=== PATIENT | male | born 1940 | race Caucasian/White ===

== ENCOUNTER 2023-04-09 10:16 | Outpatient (CLI) | payer OTHER, MEDICARE | END 2023-04-09 23:59 | disposition EMS.NT | LOC: EMS 10:16 | DX: Z04.1 Encounter for examination and observation following transport accident (principal) ==

== ENCOUNTER 2023-04-10 11:28 | Emergency (ER) | payer MEDICARE, OTHER ==
[2023-04-10 11:41] VITALS: BP 157/56
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
== END 2023-04-10 14:38 | disposition home or self-care (01) ==
LOC: ED 11:28
DX: S16.1XXA Strain of muscle, fascia and tendon at neck level, initial encounter (principal); S76.012A Strain of muscle, fascia and tendon of left hip, initial encounter; S46.912A Strain of unspecified muscle, fascia and tendon at shoulder and upper arm level, left arm, initial encounter; V43.54XA Car driver injured in collision with van in traffic accident, initial encounter
CPT/HCPCS: 99283; 99284

== ENCOUNTER 2023-05-25 12:46 | Inpatient (IN) | payer MEDICARE, OTHER ==
[2023-05-25] MEDS ORDERED: LORazepam 2 MG/ML VIAL IVP STA ×2 (12:50→15:03)
[2023-05-25] MEDS ORDERED: levETIRAcetam INJ 2,000 MG in SODIUM CHLORIDE 0.9% 100ML 100 ML IV STA (12:54)
[2023-05-25] MEDS ORDERED: LORazepam 2 MG/ML VIAL ONE (12:56)
[2023-05-25 13:07] LABS: BASOPHILS % (AUTO) 0.5 %; HCT - HEMATOCRIT 41.9 % (42.0-52.0); LYMPHOCYTES # (AUTO) 1.1 10^3/uL (1.5-3.5); LYMPHOCYTES % (AUTO) 13.6 %; MEAN CORPUSCULAR HEMOGLOBIN 27.9 pg (27.0-31.0); MEAN CORPUSCULAR VOLUME 89.9 fL (80.0-94.0); MEAN PLATELET VOLUME 10.9 fL (7.4-11.4); MONOCYTES # (AUTO) 0.6 10^3/uL (0.0-1.0); MONOCYTES % (AUTO) 8.1 %; NEUTROPHILS % (AUTO) 77.3 %; PLT - PLATELET COUNT 112 10^3/uL (130-450); RED BLOOD COUNT 4.66 10^6/uL (4.70-6.10); RED CELL DISTRIBUTION WIDTH 16.1 % (12.0-15.0); WHITE BLOOD COUNT 7.7 x10^3/uL (4.8-10.8)
[2023-05-25 13:14] LABS: INR 1.2 (0.8-1.2); PT - PROTHROMBIN TIME 13.6 secs (9.9-12.6)
--- NOTE | 2023-05-25 13:16 | ED Physician Documentation ---
PD HPI SEIZURE - Stated complaint Stated Complaint: SZ - Chief complaint Chief Complaint: Neuro - History obtained from History obtained from: EMS - Additional information Additional information: Patient is an 82-year-old male with unknown past medical history presenting for evaluation of multiple seizures. Per EMS report patient was feeling unwell yesterday and went to [facility] for fever and diarrhea and discharged with a prescription for Zofran. Today he has had 3 seizures witnessed by EMS. Family reports that he fell in the bathroom. Patient is not able to provide any meaningful history. EMS did not administer any medications. He did not return to his baseline in between the seizure episodes. EMS describes them each lasting 1 to 2 minutes and about 10 minutes apart. Review of Systems Unable to obtain: AMS PD PAST MEDICAL HISTORY - Present Medications Home Medications: Ambulatory Orders Medication Instructions Recorded Confirmed No Known Home Medications 04/10/23 04/10/23 - Allergies Allergies/Adverse Reactions: Allergies Allergy/AdvReac Type Severity Reaction Status Date / Time No Known Drug Allergies Allergy Verified 05/25/23 12:58 PD ED PE NORMAL - General General: Other (Unresponsive; cachectic). No: Alert and oriented X 3 - HEENT HEENT: Atraumatic, PERRL, Other (Dry oral mucosa) - Cardiac Cardiac: Other (Tachycardic, regular rhythm) - Respiratory Respiratory: No respiratory distress, Clear bilaterally - Abdomen Abdomen: Normal bowel sounds, Soft, Non tender, Non distended - Derm Derm: Warm and dry - Extremities Extremities: No edema - Neuro Neuro: No: Alert and oriented X 3, Normal speech Eye Opening: None Motor: Withdraws to Pain Verbal: None GCS Score: 6 Results - Vitals Vitals: Vital Signs - 24 hr 05/25/23 05/25/23 05/25/23 12:51 13:01 14:08 Temperature 36.6 C Heart Rate 118 H 106 H 88 Respiratory 24 27 H 24 Rate Blood Pressure 135/59 H 145/102 H 133/60 H O2 Saturation 98 99 98 If not protocol 2 : Oxygen Flow, liters/minute 05/25/23 05/25/23 05/25/23 14:56 15:30 16:20 Temperature Heart Rate 81 79 79 Respiratory 18 21 22 Rate Blood Pressure 119/52 L 114/56 L 106/47 L O2 Saturation 99 99 100 If not protocol 2 2 : Oxygen Flow, liters/minute 05/25/23 16:34 Temperature Heart Rate 80 Respiratory 22 Rate Blood Pressure 105/50 L O2 Saturation 100 If not protocol 2 : Oxygen Flow, liters/minute Oxygen O2 Source Nasal cannula - EKG (time done) 1253 EKG releavant findings:: EKG personally interpreted by author of this note. Relevant findings are: Rate 95, normal sinus rhythm, right bundle branch block, no STEMI, no ST depressions, no prior for comparison Rate: Rate (enter#) (95) Rhythm: NSR Ischemia: No: ST elevation c/w ischemia Compare to prior EKG: Old EKG unavailable - Labs Labs: Microbiology 05/25/23 15:35 CSF Culture - Preliminary Cerebral Spinal Fluid Laboratory Tests 05/25/23 05/25/23 05/25/23 13:00 13:00 13:00 WBC 7.7 RBC 4.66 L Hgb 13.0 L Hct 41.9 L MCV 89.9 MCH 27.9 MCHC 31.0 L RDW 16.1 H Plt Count 112 L MPV 10.9 Neut # (Auto) 6.0 Lymph # (Auto) 1.[address] [place] # (Auto) 0.6 Eos # (Auto) 0.0 Baso # (Auto) 0.0 Absolute Nucleated RBC 0.00 Nucleated RBC % 0.0 PT 13.6 H INR 1.2 Sodium 140 Potassium 4.4 Chloride 104 Carbon Dioxide 25 Anion Gap 11.0 BUN 15 Creatinine 1.5 H Estimated GFR (MDRD) 45 L Glucose 166 H POC Whole Bld Glucose Lactic Acid Calcium 9.7 Total Bilirubin 1.2 H AST 10 ALT 7 L Alkaline Phosphatase 94 Total Protein 8.1 Albumin 4.2 Globulin 3.9 Albumin/Globulin Ratio 1.1 Lipase 7 L Urine Color Urine Clarity Urine pH Ur Specific Fleming Urine Protein Urine Glucose (UA) Urine Ketones Urine Occult Blood Urine Nitrite Urine Bilirubin Urine Urobilinogen Ur Leukocyte Esterase Urine RBC Urine WBC Ur Squamous Epith Cells Urine Bacteria Urine Casts Urine Sperm Ur Microscopic Review Urine Culture Comments CSF Color CSF Clarity Xanthrochromic CSF WBC CSF RBC CSF Cell Count Tube # CSF Glucose CSF Total Protein Urine Opiates Screen Ur Oxycodone Screen Urine Methadone Screen Ur Propoxyphene Screen Ur Barbiturates Screen Ur Tricyclics Screen Ur Phencyclidine Scrn Ur Amphetamine Screen U Methamphetamines Scrn U Benzodiazepines Scrn Urine Cocaine Screen U Cannabinoids Screen Ethyl Alcohol < 10.0 09/20/23 09/20/23 09/20/23 13:00 13:06 13:50 WBC RBC Hgb Hct MCV MCH MCHC RDW Plt Count MPV Neut # (Auto) Lymph # (Auto) [place]. Johns # (Auto) Eos # (Auto) Baso # (Auto) Absolute Nucleated RBC Nucleated RBC % PT INR Sodium Potassium Chloride Carbon Dioxide Anion Gap BUN Creatinine Estimated GFR (MDRD) Glucose POC Whole Bld Glucose 158 H Lactic Acid 4.9 H* Calcium Total Bilirubin AST ALT Alkaline Phosphatase Total Protein Albumin Globulin Albumin/Globulin Ratio Lipase Urine Color DARK YELLOW Urine Clarity SL. CLOUDY Urine pH 5.0 Ur Specific Fleming >=1.030 H Urine Protein 100 H Urine Glucose (UA) NEGATIVE Urine Ketones TRACE Urine Occult Blood MODERATE H Urine Nitrite POSITIVE H Urine Bilirubin NEGATIVE Urine Urobilinogen 0.2 (NORMAL) Ur Leukocyte Esterase TRACE H Urine RBC 0-5 Urine WBC 6-10 H Ur Squamous Epith Cells RARE Squamous Urine Bacteria Moderate H Urine Casts 0-2 Granular Casts Urine Sperm PRESENT Ur Microscopic Review INDICATED Urine Culture Comments INDICATED CSF Color CSF Clarity Xanthrochromic CSF WBC CSF RBC CSF Cell Count Tube # CSF Glucose CSF Total Protein Urine Opiates Screen NEGATIVE Ur Oxycodone Screen NEGATIVE Urine Methadone Screen NEGATIVE Ur Propoxyphene Screen NEGATIVE Ur Barbiturates Screen NEGATIVE Ur Tricyclics Screen NEGATIVE Ur Phencyclidine Scrn NEGATIVE Ur Amphetamine Screen NEGATIVE U Methamphetamines Scrn NEGATIVE U Benzodiazepines Scrn POSITIVE H Urine Cocaine Screen NEGATIVE U Cannabinoids Screen NEGATIVE Ethyl Alcohol 05/25/23 15:35 WBC RBC Hgb Hct MCV MCH MCHC RDW Plt Count MPV Neut # (Auto) Lymph # (Auto) [place]. [place] # (Auto) Eos # (Auto) Baso # (Auto) Absolute Nucleated RBC Nucleated RBC % PT INR Sodium Potassium Chloride Carbon Dioxide Anion Gap BUN Creatinine Estimated GFR (MDRD) Glucose POC Whole Bld Glucose Lactic Acid Calcium Total Bilirubin AST ALT Alkaline Phosphatase Total Protein Albumin Globulin Albumin/Globulin Ratio Lipase Urine Color Urine Clarity Urine pH Ur Specific Fleming Urine Protein Urine Glucose (UA) Urine Ketones Urine Occult Blood Urine Nitrite Urine Bilirubin Urine Urobilinogen Ur Leukocyte Esterase Urine RBC Urine WBC Ur Squamous Epith Cells Urine Bacteria Urine Casts Urine Sperm Ur Microscopic Review Urine Culture Comments CSF Color COLORLESS CSF Clarity CLEAR Xanthrochromic ABSENT CSF WBC 1 CSF RBC 0 CSF Cell Count Tube # CSF TUBE# 3 CSF Glucose 85 H CSF Total Protein 62 H Urine Opiates Screen Ur Oxycodone Screen Urine Methadone Screen Ur Propoxyphene Screen Ur Barbiturates Screen Ur Tricyclics Screen Ur Phencyclidine Scrn Ur Amphetamine Screen U Methamphetamines Scrn U Benzodiazepines Scrn Urine Cocaine Screen U Cannabinoids Screen Ethyl Alcohol PD Medical Decision Making - ED course Complexity details: d/w patient, d/w family (Reviewed work-up with son Over the phone and grandchildren at the bedside. I also reviewed incidental findings of Spiculated nodule in right lung and a sclerotic lesion in C7 that could both be concerning for cancer.) ED course: Patient is an 82-year-old male presenting for evaluation after an unwitnessed fall with 3 seizures. Patient is minimally responsive and has not returned to his baseline between the seizures thus concerning for status epilepticus. He was actively seizing upon arrival and I did order for 2 mg of IV Ativan as well as a loading dose of Keppra 2 g. Broad work-up was initiated including labs with blood cultures, lactic acid, CT head, cervical spine, x-ray, urine analysis, EtOH and drug screen. Labs are significant for an elevated lactic which could be expected in the setting of seizure. The patient was reportedly ill and seen at [facility] yesterday with fever and diarrhea. He is not febrile here. CT head and C-spine were obtained and reviewed. There were incidental findings noted on the C-spine including a pulmonary nodule and a sclerotic lesion which I reviewed with patient's grandchildren who are at the bedside and also communicated with admitting hospitalist. I performed a lumbar puncture with clear appearing CSF after consenting with family. I have started the patient on broad antibiotics including Rocephin, vancomycin and ampicillin given his age.Initially there was no bed available here in our ICU but I did discuss the case with the admitting hospitalist who did feel that he could be managed here. She did ask if I can order an MRI with and without contrast to evaluate for brain mass or metastatic disease.Eventually an ICU bed did open up and again I discussed with Dr. Porter. She is aware that Per the family patient would not want intubation or resuscitation.Patient's Mental status has not significantly changed at all since being here or with family present and placing his hearing aids.I have not seen any further seizure episodes since the first 1 when he arrived here. 1258 - D/W Son Jeffrey Dior Son is a long-national van truck driver and is currently located in [place] and is trying to come home. He was told that his father went to the ER last night for reported fevers diarrhea and cold sweats with nausea. His father does not have a history of seizures and only takes baby aspirin. It does not regularly see physicians or go for checkups. He does not use any recreational drugs or alcohol. Patient does not have any advanced directives and so we discussed resuscitative measures such as CPR and intubation. Son feels that his father would not want heroic measures like CPR or chest compressions and would not want intubation or to be put on a life support machine. He otherwise would like us to proceed with treatment of seizures and diagnosis of underlying condition. He is attempting to fly home as he understands that his father is in critical condition. 3. A sclerotic lesion in C7, probably a bone island. If the patient has a personal history of cancer, metastatic disease is a differential diagnosis. 4. A 1.3 cm spiculated nodule in the right upper lobe. Recommend nonemergent chest CT for follow-up. Departure - Departure Disposition: [facility] DC/Xfer Clinical Impression: New onset seizure, Pulmonary nodule Altered mental state Qualifiers: Altered mental status type: unspecified Qualified Code(s): R41.82 - Altered mental status, unspecified UTI (urinary tract infection) Qualifiers: Urinary tract infection type: acute cystitis Condition: Critical Discharge Date/Time: 05/25/23 18:55
--- NOTE | 2023-05-25 13:21 | XRAY Report ---
PROCEDURE: Chest 1 View X-Ray INDICATIONS: seizures TECHNIQUE: One view of the chest was acquired. COMPARISON: None. FINDINGS: Surgical changes and devices: None. Lungs and pleura: Mild bilateral interstitial prominence. No focal consolidation. No pleural effusio ns or pneumothorax. Mediastinum: Mediastinal contours appear normal. Heart size is normal. Bones and chest wall: No suspicious bony lesions. Overlying soft tissues appear unremarkable. IMPRESSION: No acute cardiopulmonary process. Reviewed by: Desiree Ponce MD on 05/25/2023 1:19 PM PDT Approved by: Desiree Ponce MD on 05/25/2023 1:19 PM PDT Station ID: [id number]
[2023-05-25 13:22] LABS: ALBUMIN 4.2 g/dL (3.2-5.5); ALBUMIN/GLOBULIN RATIO 1.1 (1.0-2.2); ALKALINE PHOSPHATASE 94 IU/L (42-121); ALT ALANINE AMINOTRANSFERASE 7 IU/L (10-60); AST ASPARTATE AMINOTRANSFERASE 10 IU/L (10-42); BILIRUBIN,TOTAL 1.2 mg/dL (0.2-1.0); BUN - BLOOD UREA NITROGEN 15 mg/dL (6-20); CALCIUM 9.7 mg/dL (8.5-10.3); CARBON DIOXIDE - CO2 25 mmol/L (21-32); CHLORIDE 104 mmol/L (101-111); CREATININE 1.5 mg/dL (0.6-1.3); ETOH - ETHANOL < 10.0 mg/dL; GFR - MDRD 45 (>89); GLUCOSE 166 mg/dL (74-104); POTASSIUM 4.4 mmol/L (3.5-4.5); SODIUM 140 mmol/L (135-145); TOTAL PROTEIN 8.1 g/dL (6.4-8.9)
[2023-05-25 13:23] LABS: LIPASE 7 U/L (11-82)
[2023-05-25] MEDS ORDERED: SODIUM CHLORIDE 0.9% 1,000 ML IV STA ×3 (13:28→16:45)
--- NOTE | 2023-05-25 14:14 | CT Report ---
PROCEDURE: HEAD WO INDICATIONS: seizure x 3; AMS TECHNIQUE: Noncontrast 4.5 mm thick angled axial sections acquired from the foramen magnum to the vertex. For r adiation dose reduction, the following was used: automated exposure control, adjustment of mA and/or kV according to patient size. COMPARISON: None. FINDINGS: Image quality: Excellent. CSF spaces: Basal cisterns are patent. No extra-axial fluid collections. Ventricles are normal in size and shape. Brain: No midline shift. No intracranial masses or hemorrhage. Moderate cerebral volume loss. Annita ventricular matter chronic small vessels ischemic changes. Coughlin-white matter interface is normal. Skull and face: Calvarium and visualized facial bones are intact, without suspicious lesions. Sinuses: Visualized sinuses and mastoids are clear. IMPRESSION: No acute intracranial pathology. A cause for seizure is not identified on CT. Consider MRI with and w ithout contrast for further evaluation. Reviewed by: Desiree Ponce MD on 05/25/2023 2:12 PM PDT Approved by: Desiree Ponce MD on 05/25/2023 2:12 PM PDT Station ID: [id number]
[2023-05-25 14:18] LABS: MUDS CUTOFF CONCENTRATIONS CUTOFF CONC BELOW:
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
[2023-05-25 14:22] LABS: BILIRUBIN,URINE NEGATIVE (NEGATIVE); CLARITY,URINE SL. CLOUDY (CLEAR); GLUCOSE, URINE (UA) NEGATIVE (NEGATIVE); KETONES,URINE (UA) TRACE mg/dL (NEGATIVE); LEUKOCYTE ESTERASE, URINE TRACE (NEGATIVE); NITRITE,URINE POSITIVE (NEGATIVE); OCCULT BLOOD,URINE MODERATE (NEGATIVE); PROTEIN,URINE 100 mg/dL (NEGATIVE); UROBILINOGEN,URINE 0.2 (NORMAL) E.U./dL (NORMAL)
[2023-05-25 14:34] LABS: BACTERIA,URINE Moderate /HPF (None Seen); CASTS, URINE 0-2 Granular Casts /LPF; RBC,URINE 0-5 /HPF (0-5); SPERM,URINE PRESENT; SQUAMOUS EPITHELIAL CELL,UR RARE Squamous (<= Few)
[2023-05-25 14:35] LABS: AMPHETAMINE SCREEN,URINE NEGATIVE (NEGATIVE); BARBITURATE SCREEN,UR NEGATIVE (NEGATIVE); BENZODIAZEPINES SCREEN, URINE POSITIVE (NEGATIVE); COCAINE SCREEN URINE NEGATIVE (NEGATIVE); METHADONE SCREEN, URINE NEGATIVE (NEGATIVE); METHAMPHETAMINES SCREEN, URINE NEGATIVE (NEGATIVE); OPIATE SCREEN, URINE NEGATIVE (NEGATIVE); OXYCODONE SCREEN, URINE NEGATIVE (NEGATIVE); PROPOXYPHENE SCREEN, URINE NEGATIVE (NEGATIVE); THC CANNABINOID SCREEN, URINE NEGATIVE (NEGATIVE); TRICYCLIC ANTIDEPRESSANT,URINE NEGATIVE (NEGATIVE)
[2023-05-25] MEDS ORDERED: lidocaine 1% 20 ML MDV SUBQ ONE (14:47)
--- OUTSIDE RECORDS SUMMARY | 2023-05-25 14:49 | EXTERNAL MEDICAL SUMMARY RPT | Continuity of Care Document ---
Author Name Unknown Address [address] [place] [address] Phone Organization [facility] Address [address] [place] [address] Phone Care Team Providers Care Welder And Fitter Name Role Phone SundeepAde Unavailable Unavailable Allergies and Intolerances date description facility reaction severity (no date) No Known Drug Allergies [facility] (no shon ction) (no severity) Problems date description facility 2023-05-25 00:[address] [facility] 2023-05-25 00:00 Fever [facility] Procedures date description facility 2023-05-25 00:00 Computed tomography of head or brain without contrast [facility] 2023-05-25 00:00 X-ray of chest, single view [facility] Results/Labs test date facility value unit notes Social History date description facility 2023-05-25 00:00 Smokes tobacco daily (finding) [facility] Vital Signs date measurement value units 2023-05-24 00:00 BMI 22.8 kg/m2 2023-05-24 00:00 height_metric 172.72 cm 2023-05-24 00:00 height_standard 68 in 2023-05-24 00:00 temperature_metric 36.94 C 2023-05-24 00:00 temperature_standard 98.5 F 2023-05-24 00:00 weight_metric 68.03 kg 2023-05-24 00:00 weight_standard 149.98 lb 2023-05-25 00:00 BP_diastolic 54 mmHg 2023-05-25 00:00 BP_systolic 123 mmHg 2023-05-25 00:00 heart_rate 75 /min 2023-05-25 00:00 o2_saturation 93 % 2023-05-25 00:00 respiration_rate 16 /min
[2023-05-25] MEDS ORDERED: cefTRIAXone 2 GM in SODIUM CHLORIDE 0.9% MINIBAG 100 ML IV STA (15:41)
[2023-05-25 16:03] LABS: CLARITY,CSF CLEAR (CLEAR); COLOR,CSF COLORLESS (COLORLESS); CSF TUBE # CSF TUBE# 3; CSF XANTHOCHROMIA ABSENT (ABSENT); RED BLOOD CELL,CSF 0 /mm^3 (0-1); WHITE BLOOD CELL,CSF 1 /mm^3 (0-5)
[2023-05-25 16:14] LABS: CSF - GLUCOSE 85 mg/dL (45-70); TOTAL PROTEIN,CSF 62 mg/dL (15-60)
[2023-05-25] MEDS ORDERED: VANCOMYCIN INJ 1 GM in SODIUM CHLORIDE 0.9% 250 ML IV SCH (17:00)
[2023-05-25] MEDS ORDERED: ONDANSETRON ODT 4 MG TABLET TL PRN (17:04)
[2023-05-25] MEDS ORDERED: oxyCODONE 5 MG TABLET PO PRN (17:04)
[2023-05-25] MEDS ORDERED: ACETAMINOPHEN 325 MG TABLET PO PRN (17:04)
[2023-05-25] MEDS ORDERED: ONDANSETRON 4 MG/2 ML VIAL IVP PRN (17:04)
[2023-05-25] MEDS ORDERED: SODIUM CHLORIDE FLUSH 0.9% 10 ML SYRINGE IVP PRN (17:04)
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
[2023-05-25] MEDS ORDERED: AMPICILLIN 2 GM in SODIUM CHLORIDE 0.9% MINIBAG 100 ML IV SCH (18:00)
--- NOTE | 2023-05-25 19:26 | MRI Report ---
PROCEDURE: BRAIN W/WO INDICATIONS: new onset seizures/AMS CONTRAST: gadavist 5.9ml TECHNIQUE: Noncontrast axial T1 spin echo, axial T2 fast spin echo, sagittal and axial FLAIR, coronal T2 fast sp in echo, axial gradient echo, axial diffusion and ADC through the brain. After the administration of contrast, axial and coronal T1 spin echo with fat saturation through the brain. COMPARISON: Correlation is made with head CT, 05/25/2023. FINDINGS: Image quality: Excellent. Motion artifact is noted. CSF spaces: Basal cisterns are patent. No extra-axial fluid collections. Ventricles are normal in size and shape. Brain: There is a mild degree of abnormal diffusion weighted signal seen involving the anterior supe rior aspect of the right frontal lobe, as on series 12 images 43 through 46. There is associated dark signal seen on the ADC maps at these sites. No abnormal enhancement can be seen within this region. No midline shift. No intracranial bleeds or masses. No abnormal intracranial enhancement. There is cerebral volume loss for age. There is periventricular white matter chronic small vessel ischemic c hange. The brainstem appears normal. No chronic ischemic insults. Normal intravascular flow voids are present. Skull and face: Calvarial marrow is normal in signal. Orbits appear normal. Sinuses: Sinuses and mastoids appear clear. IMPRESSION: Acute infarction seen involving the anterior superior right frontal lobe. Motion limited study. No masses or abnormal enhancement can be seen. Reviewed by: Kvng Bhatt MD on 05/25/2023 6:25 PM AKARNOL Approved by: Kvng Bhatt MD on 05/25/2023 6:25 PM AKDT Station ID: [id number]
[2023-05-25] MEDS: SODIUM CHLORIDE 0.9% 1,000 ML IV SCH (20:12)
[2023-05-25] MEDS: levETIRAcetam INJ 500 MG in SODIUM CHLORIDE 0.9% 100ML 100 ML IV SCH (20:28)
[2023-05-25] MEDS ORDERED: levETIRAcetam 500 MG/5 ML VIAL IVP SCH (21:00)
[2023-05-25] MEDS: AMPICILLIN 2 GM in SODIUM CHLORIDE 0.9% MINIBAG 100 ML IV SCH (23:42)
[2023-05-26] MEDS: SODIUM CHLORIDE FLUSH 0.9% 10 ML SYRINGE IVP SCH ×3 (00:23→13:43)
[2023-05-26 04:49] LABS: BASOPHILS % (AUTO) 0.5 %; EOSINOPHILS % (AUTO) 0.5 %; HGB - HEMOGLOBIN 9.7 g/dL (14.0-18.0); LYMPHOCYTES # (AUTO) 0.8 10^3/uL (1.5-3.5); LYMPHOCYTES % (AUTO) 18.7 %; MEAN CORPUSCULAR HEMOGLOBIN 28.4 pg (27.0-31.0); MEAN CORPUSCULAR HGB CONC 31.3 g/dL (32.0-36.0); MEAN CORPUSCULAR VOLUME 90.6 fL (80.0-94.0); MEAN PLATELET VOLUME 11.5 fL (7.4-11.4); MONOCYTES # (AUTO) 0.3 10^3/uL (0.0-1.0); MONOCYTES % (AUTO) 7.8 %; NEUTROPHILS # (AUTO) 3.1 10^3/uL (1.5-6.6); NEUTROPHILS % (AUTO) 72.3 %; PLT - PLATELET COUNT 72 10^3/uL (130-450); RED BLOOD COUNT 3.42 10^6/uL (4.70-6.10); RED CELL DISTRIBUTION WIDTH 15.9 % (12.0-15.0); WHITE BLOOD COUNT 4.2 x10^3/uL (4.8-10.8)
[2023-05-26 05:00] LABS: CALCIUM 8.3 mg/dL (8.5-10.3); CREATININE 1.2 mg/dL (0.6-1.3); POTASSIUM 3.8 mmol/L (3.5-4.5)
[2023-05-26] MEDS ORDERED: cefTRIAXone 2 GM in SODIUM CHLORIDE 0.9% MINIBAG 100 ML IV SCH (06:00)
[2023-05-26] MEDS ORDERED: ACETAMINOPHEN 650 MG SUPP PR PRN (06:02)
[2023-05-26] MEDS: AMPICILLIN 2 GM in SODIUM CHLORIDE 0.9% MINIBAG 100 ML IV SCH ×2 (06:19→13:23)
[2023-05-26] MEDS: LORazepam 2 MG/ML VIAL IVP PRN ×4 (06:24→13:41)
--- NOTE | 2023-05-26 07:44 | PROVIDER PROGRESS NOTE ---
Progress Note May 26, 2023 3:20 PM As I was leaving last night his MRI report came back. He has an acute infarction involving the anterior superior frontal lobe on the right. Overnight he did have a temperature to 38.2. He is on empiric ampicillin, ceftriaxone, and vancomycin. Blood pressures are low. Since 10:00 last night he has been between 99-112 systolic. Hovering around 103, 106 He has continued to have intermittent seizures manifested as twitching of his left arm. He has been getting Ativan for this. His son, grandson, granddaugh ter and grandson's girlfriend are at the bedside. They reiterate what his granddaughter told me last night. Which is he never wanted to be in the hospital. He does not want interventions. He would not want to be here. Active Medications Acetaminophen (Acetaminophen 325 Mg Tablet) 650 mg PO Q4HR PRN PRN Reason: Pain 1 to 4, or Fever Acetaminophen (Acetaminophen 650 Mg Supp) 650 mg KS Q4H PRN PRN Reason: Pain or Fever > 38C (100.4F) Enoxaparin Sodium (Enoxaparin 40 Mg/0.4 Ml Syringe) 40 mg SUBQ DAILY CHIKI Sodium Chloride (Normal Saline 0.9%) 1,000 mls @ 100 mls/hr IV .Q10H CHIKI Last Infusion: 05/26/23 05:36 Dose: 0 mls/hr Ampicillin Sodium 2 gm/ Sodium (Chloride) 100 mls @ 100 mls/hr IV Q6HR CHIKI Last Admin: 05/26/23 06:19 Dose: 100 mls/hr Ceftriaxone Sodium 2 gm/ (Sodium Chloride) 100 mls @ 200 mls/hr IV Q12H CHIKI Last Infusion: 05/26/23 06:19 Dose: Infused Vancomycin HCl 1 gm/ Sodium (Chloride) 250 mls @ 167 mls/hr IV Q24H CHIKI Levetiracetam 500 mg/ Sodium (Chloride) 105 mls @ 100 mls/hr IV BID CHIKI Last Infusion: 05/25/23 21:39 Dose: Infused Lorazepam (Lorazepam 2 Mg/Ml Vial) 1 mg IVP Q2H PRN PRN Reason: Seizure Last Admin: 05/26/23 06:24 Dose: 1 mg Ondansetron HCl (Ondansetron Odt 4 Mg Tablet) 4 mg TL Q6HR PRN PRN Reason: Nausea / Vomiting Ondansetron HCl (Ondansetron 4 Mg/2 Ml Vial) 4 mg IVP Q6HR PRN PRN Reason: Nausea / Vomiting Oxycodone HCl (Oxycodone 5 Mg Tablet) 5 mg PO Q4HR PRN PRN Reason: Pain 5 to 7 Sodium Chloride (Sodium Chloride Flush 0.9% 10 Ml Syringe) 10 ml IVP PRN PRN PRN Reason: NEEDED PER PROVIDER ORDERS Last Admin: 05/25/23 20:13 Dose: 10 ml Sodium Chloride (Sodium Chloride Flush 0.9% 10 Ml Syringe) 10 ml IVP 0100,0900,1700 CHIKI Last Admin: 05/26/23 00:23 Dose: Not Given No Known Home Medications 04/10/23 Exam: Temperature 36.6, heart rate 95, blood pressure 141/60, respirations 29, 90% saturated on 1 L. He is a cachectic frail elderly gentleman who is mouth open breathing,laying on his back, eyes at half mast, and the nasal cannula is in his mouth because of mouth open breathing. He is restless. Grasping at the sheets. But he does respond to his granddaughter's voice and when she asked him to hold onto her hand he does squeeze her hand. Earlier in the day he did respond to his son's voice. He opened his eyes, hugged his son, and told him that he left him. As the day has progressed, the patient has gotten more and more unresponsive. He is no longer recognizing people but does respond to their voices. Cachectic rib cage with coarse upper airway sounds. Tachycardic regular rate and rhythm. Abdomen scaphoid, nontender. Hypoactive bowel sounds. Skinny extremities. Responds to noxious stimuli. Last night the ER provider was wondering if he had decorticate posturing. At this time he does not. Labs: BMP this morning was normal. CBC shows a white cell count that is dropped from 7.7-4.2. Hemoglobin is dropped to 9.7 from 13. MCV is normal. Platelets have dropped to 72 from 112. .Conclusion/Plan - Problem List (1) Ischemic stroke right frontal lobe Conclusion/Plan: The patient presented as a gradual reduction in mental status over the last 2 to 3 days. [facility] and sent home from the ER. CT of the head was negative there. He really presented to our emergency room because his mental status had a sharp deterioration, and again initial CT of the head was negative. But upon getting the MRI he has had a frontal lobe stroke. We were initially evaluating him for meningitis. Also evaluating with possible metabolic encephalopathy secondary to UTI. From admission to now he has received IV fluids, IV antibiotics, but continues to have small seizures. Family is now at the bedside and they are all in concurrent agreement. He would never want to be here. They do not want us to actively treat him anymore. Even if he recovered he would not want to live life with disability. As such they are asking me to transition him to comfort measures. Plan: Transition to comfort measures Discontinue vital signs Discontinue labs Discontinue all medications except those associated with comfort. I will be ordering Robinul and atropine for secretions. Ondansetron will continue for nausea and vomiting. Roxanol drops will be added for pain and agitation. Ativan IV push every 2 hours to be continued for agitation. Will also be continued for as needed seizures. (2) Altered mental state Conclusion/Plan: Differential diagnosis last night included stroke, meningitis, drug effect, possible metastatic brain disease from a spiculated lung lesion. Diagnosis has been centered now on stroke. Patient is not expected to recover. Qualifiers: Altered mental status type: unspecified Qualified Code(s): R41.82 - Altered mental status, unspecified (3) Pulmonary nodule Conclusion/Plan: Spiculated lesion found incidentally on CT of the neck. No further work-up at this time since patient is being transitioned to comfort measures (4) UTI (urinary tract infection) Conclusion/Plan: This patient did receive antibiotics last night. Microbiology has no growth in the urine, blood culture has no growth, and CSF preliminary culture has no white cells and no growth. Antibiotics will be discontinued. I had already discontinued ampicillin and vancomycin once I realize he had a stroke. I was continuing Rocephin for the UTI. But now the family is wanting comfort measures I will be discontinuing the Rocephin. Qualifiers: Urinary tract infection type: acute cystitis
[2023-05-26] MEDS: levETIRAcetam INJ 500 MG in SODIUM CHLORIDE 0.9% 100ML 100 ML IV SCH (08:56)
[2023-05-26] MEDS: SODIUM CHLORIDE 0.9% 1,000 ML IV SCH (08:57)
[2023-05-26] MEDS ORDERED: ENOXAPARIN 40 MG/0.4 ML SYRINGE SUBQ SCH (09:00)
[2023-05-26] MEDS ORDERED: SODIUM CHLORIDE 0.9% 100ML 100 ML IV ONE (09:01)
[2023-05-26 13:09] VITALS: O2SAT 90
[2023-05-26 14:18] VITALS: BP 141/60
[2023-05-26] MEDS ORDERED: ATROPINE 1% OPHTH DROPS 2 ML SL PRN (15:17)
[2023-05-26] MEDS ORDERED: MORPHINE SOL 10 MG/0.5 ML ORAL SYRINGE SL PRN (15:17)
[2023-05-26] MEDS ORDERED: CARBOXYMETHYLCELLULOSE OPHTH DROPS EACHEYE PRN (15:17)
[2023-05-26] MEDS ORDERED: GLYCOPYRROLATE 1 MG/5 ML VIAL SUBQ PRN (15:17)
[2023-05-26] MEDS ORDERED: SODIUM CHLORIDE 0.9% 1,000 ML IV SCH (16:00)
[2023-05-26] MEDS ORDERED: VANCOMYCIN INJ 1 GM in SODIUM CHLORIDE 0.9% 250 ML IV SCH (17:00)
--- NOTE | 2023-05-26 20:43 | PROVIDER PROGRESS NOTE ---
Hospitalist Cross-cover Note - Cross-Cover Note Cross-Cover Note: May 26, 2023 6:40 PM Patient's family at the bedside and he developed agonal respiration and gently with his loving family at the bedside. 1 minute exam to assess for pulse, pupils, respirations was done. None present. Patient pronounced.
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
== END 2023-05-26 18:40 | disposition expired | DRG 64 ==
LOC: ED 12:46 → ICU 17:04
PROVIDERS: ADMIT Specialist; ATTEND Specialist
DX: R56.9 Unspecified convulsions (principal); R41.82 Altered mental status, unspecified; I63.9 Cerebral infarction, unspecified; I45.10 Unspecified right bundle-branch block; G93.41 Metabolic encephalopathy; R64 Cachexia; Z68.1 Body mass index [BMI] 19.9 or less, adult; M47.812 Spondylosis without myelopathy or radiculopathy, cervical region; N30.00 Acute cystitis without hematuria; R91.1 Solitary pulmonary nodule; Z79.82 Long term (current) use of aspirin; Z91.81 History of falling; I25.2 Old myocardial infarction; G40.909 Epilepsy, unspecified, not intractable, without status epilepticus; M89.9 Disorder of bone, unspecified; F17.200 Nicotine dependence, unspecified, uncomplicated; Z51.5 Encounter for palliative care; Z66 Do not resuscitate
CPT/HCPCS: 36415; 62270; 70450; 70553; 71045; 72125; 80048; 80053; 80306; 81001; 81599; 82945; 83605; 83690; 84157; 85025; 85610; 87040; 87070; 87086; 87150; 87205; 89051; 93005; 96365; 96367; 96375; 96376; 99285; A9585; G0480; J2060; J3370; 80202; 80320; 81003; 87529